=== PATIENT | male | born 1985 | race Caucasian/White ===

== ENCOUNTER → 2021-02-01 | Outpatient (CLI) | payer BC ==
[~2021-02-01] VITALS: Ht 172.7 cm; Wt 94.0 kg
[~2021-02-01] MED LIST: NO HOME MEDICATIONS
[2021-02-01 09:15] VITALS: BP 156/101; PULSE 63; TEMP 98.3
[2021-02-01 10:20] VITALS: BP 156/89; PULSE 55
== END ==
LOC: COL.RAD 08:43
DX: R22.1 Localized swelling, mass and lump, neck (principal)